=== PATIENT | female | born 1955 | race Caucasian/White ===

== ENCOUNTER → 2022-08-28 | Day surgery (SDC) | payer MEDICARE ==
[~2022-08-28] MED LIST: Lactated Ringers 1,000 ML IV SCH
== END ==
LOC: JP.SDS 06:00
DX: Z12.11 Encounter for screening for malignant neoplasm of colon (principal); E78.5 Hyperlipidemia, unspecified; Z20.822 Contact with and (suspected) exposure to COVID-19